=== PATIENT | female | born 1940 | race Caucasian/White ===

== ENCOUNTER 2016-05-11 17:48 | Inpatient (IN) | payer OTHER ==
[~2016-05-11] VITALS: Ht 160 cm; Wt 112.4 kg
[~2016-05-11 17:48] MED LIST: ASPIR-LOW81 MG PO; ASPIRIN EC325 MG PO; CALCIUM/VITAMIN D PO; CELEBREX200 MG PO; DOK PLUS TABLE1 EACH PO; HYDROCODON-ACE1 EAC7 PO; HYDROCODON-ACE1 EAC9 PO; LASIX40 MG PO; LIPITOR40 MG PO; LO-DOSE ASPIRIN81 M1 PO; LOPRESSOR50 MG PO; SENNA PLUS TAB1 EACH PO; ZESTORETIC 20-1 EAC1 NG; ZESTRIL20 MG PO
[2016-05-11 18:14] LABS: CREATININE 0.8 mg/dL (0.6-1.3); POTASSIUM 3.8 mEq/L (3.7-5.4)
[2016-05-11 18:23] LABS: EOSINOPHIL (%) 0 % (0-5); HEMATOCRIT 39.4 % (36.0-46.0); IMMATURE GRANULOCYTE (%) 0.5 % (0.0-0.7); IMMATURE GRANULOCYTE COUNT 0.6 K/uL; LYMPHOCYTE COUNT 0.7 K/uL (1.0-2.8); MCHC 33.5 G/DL (30.0-36.0); MCV 83.7 FL (83-99); MEAN PLAT.VOLUME 10.3 uM^3 (9.5-12.4); MONOCYTE (%) 7.2 % (3-12); MONOCYTE COUNT 0.9 K/uL (0-0.8); NEUTROPHIL (%) 86.2 % (45-76); NEUTROPHIL COUNT 10.7 K/uL (1.8-6.4); PLATELET COUNT 250 K/uL (156-360); RBC DIS.WIDTH-CV 13.9 % (11.8-14.6); RBC DIS.WIDTH-SD 41.8 % (39-53); RED BLOOD COUNT 4.71 M/uL (3.80-5.20); WHITE BLOOD COUNT 12.4 K/uL (4.1-10.2)
[2016-05-11 18:42] LABS: CHLORIDE 101 mEq/L (99-109); SODIUM 135 mEq/L (136-147)
[2016-05-11 18:44] LABS: GLUCOSE 206 mg/dL (70-99); TROP-I INTERPRETATION NEGATIVE; TROPONIN-I 0.12 ng/mL (0.0-0.30)
[2016-05-11 18:46] LABS: ANION GAP 15 MEQ/L (2-14)
[2016-05-11 18:48] LABS: ALKALINE PHOSPHATASE 88 IU/L (3-129); GFR ESTIMATE (CALCULATED) 52 mL/min/
[2016-05-11 18:49] LABS: UREA NITROGEN (BUN) 20 mg/dL (9-23)
[2016-05-11 18:51] LABS: LIPASE 85 U/L (1.0-51.0)
[2016-05-11 18:56] LABS: INFLUENZA A VIRAL ANTIGEN NEGATIVE; INFLUENZA B VIRAL ANTIGEN POSITIVE
[2016-05-11 18:57] LABS: CREATINE KINASE 390 IU/L (1-294); TOTAL CK 390 IU/L (1-294)
[2016-05-11 19:03] LABS: CK-MB 2.8 ng/mL (0.0-4.9)
[2016-05-11 19:32] LABS: ADD MIUA? YES; BILIRUBIN NEGATIVE; BLOOD SMALL; COLOR YELLOW ((YELLOW)); GLUCOSE (STRIP) 150; KETONES 20; LEUKOCYTES NEGATIVE; NITRITE NEGATIVE; PROTEIN (STRIP) >=500; SPECIFIC GRAVITY 1.024 (1.000-1.030); UROBILINOGEN 0.2 MG/DL (0.2-1.0)
[2016-05-11 19:37] LABS: BASE EXCESS -1.4 mEq/L (-3 to +3); BICARBONATE 22.8 mEq/L (22-26); COMMENTS - BLOOD GASES C+A+; DEVICE VENTILATOR; FI02 40 %; MECHANICAL RATE 16 resp/min; METHEMOGLOBIN 1.1 % (0-1.5); MODE A/C; PCO2 36 mm Hg (35-45); PEEP 5 CM/H20; PO2 84 mm Hg (80-100); SITE RR; TIDAL VOLUME 500 ML; TOTAL RESP RATE 16 resp/min; pH 7.41 (7.35-7.45)
[2016-05-11 19:38] LABS: BACTERIA NONE SEEN /HPF; EPITHELIAL CELLS RARE /HPF; MUCUS TRACE /LPF; UCUL ADDED? NO; WHITE BLOOD CELLS 0-5 /HPF (0-5)
[2016-05-12] VITALS (31 sets, daily range): BP systolic 80–159; BP diastolic 26–60
[2016-05-12 02:04] LABS: BASE EXCESS -1.2 mEq/L (-3 to +3); CARBOXY HGB 1.6 % (0-5); COMMENTS - BLOOD GASES C+; DEVICE VENT; FI02 40 %; METHEMOGLOBIN 1.4 % (0-1.5); PCO2 31 mm Hg (35-45); PO2 79 mm Hg (80-100); SITE RR; pH 7.46 (7.35-7.45)
[2016-05-12 02:05] LABS: MECHANICAL RATE 16 resp/min; MODE AC; PEEP 5 CM/H20; TIDAL VOLUME 500 ML; TOTAL RESP RATE 16 resp/min
[2016-05-12 02:27] LABS: POINT-OF-CARE METER ID UU13113731
[2016-05-12 02:57] LABS: METH RESISTANT S AUREUS PCR NEGATIVE (NEGATIVE)
[2016-05-12 03:02] LABS: PROBE CHECK PASS; SPECIMEN PROCESSING CONTROL PASS
[2016-05-12 04:25] LABS: AMPHETAMINES QUANT VALUE 0 NG/ML; BARBITUATES QUANT VALUE 0 NG/ML; BENZODIAZEPINES QUANT VALUE 0 NG/ML; BENZODIAZEPINES, URINE SCREEN Negative (200 ng/mL); MARIJUANA QUANT VALUE 0 NG/ML; OPIATES QUANTITATIVE VALUE 0 NG/ML; PHENCYCLIDINE QUANT VALUE 0 NG/ML
[2016-05-12 06:35] LABS: ALKALINE PHOSPHATASE 56 IU/L (3-129); ANION GAP 11 MEQ/L (2-14); CHLORIDE 107 MEQ/L (99-109); DIRECT BILIRUBIN 0.2 mg/dL (0.0-0.3); GFR ESTIMATE (CALCULATED) 52 mL/min/; GLUCOSE 142 mg/dL (70-99); MAGNESIUM 1.4 mg/dl (1.3-2.7); SAMPLE HEMOLYSIS CHECK 0; SAMPLE ICTERIC CHECK 0; SAMPLE LIPEMIA CHECK 0; SODIUM 137 MEQ/L (136-147); TOTAL BILIRUBIN 0.7 MG/DL (0.0-1.0); UREA NITROGEN (BUN) 22 mg/dL (9-23)
[2016-05-12 06:44] LABS: EOSINOPHIL (%) 0 % (0-5); HEMATOCRIT 31.7 % (36.0-46.0); IMMATURE GRANULOCYTE (%) 0.2 % (0.0-0.7); LYMPHOCYTE COUNT 0.6 K/uL (1.0-2.8); MCH 27.5 PG (29.0-34.0); MCHC 32.5 G/DL (30.0-36.0); MCV 84.8 FL (83-99); MEAN PLAT.VOLUME 10.2 uM^3 (9.5-12.4); MONOCYTE COUNT 1.2 K/uL (0-0.8); NEUTROPHIL (%) 76.9 % (45-76); NEUTROPHIL COUNT 6.3 K/uL (1.8-6.4); PLATELET COUNT 185 K/uL (156-360); POTASSIUM 3.1 MEQ/L (3.7-5.4); RBC DIS.WIDTH-CV 14.2 % (11.8-14.6)
[2016-05-12 06:45] LABS: RED BLOOD COUNT 3.74 M/uL (3.80-5.20); WHITE BLOOD COUNT 8.2 K/uL (4.1-10.2)
[2016-05-12 10:01] LABS: POINT-OF-CARE METER ID UU14174217
[2016-05-12 10:02] LABS: POINT-OF-CARE METER ID UU13113748
[2016-05-12] MEDS ORDERED: ATORVASTATIN CA40 MG PO (11:45)
[2016-05-12] MEDS ORDERED: ASPIR-LOW81 MG PO (11:45)
[2016-05-12] MEDS ORDERED: CALCIUM 600 MG1 EACH PO (11:46)
[2016-05-12] MEDS ORDERED: CELECOXIB200 MG PO (11:47)
[2016-05-12] MEDS ORDERED: FUROSEMIDE40 MG PO (11:47)
[2016-05-12] MEDS ORDERED: METOPROLOL TART50 MG PO (11:48)
[2016-05-12] MEDS ORDERED: LISINOPRIL30 MG PO (11:48)
[2016-05-12] MEDS ORDERED: POTASSIUM CHLO20 ME2 PO (11:49)
[2016-05-12 16:39] LABS: BICARBONATE 20.6 mEq/L (22-26); CARBOXY HGB 1.5 % (0-5); COMMENTS - BLOOD GASES AC+; DEVICE 840 VENTILATOR; FI02 40 %; METHEMOGLOBIN 1.4 % (0-1.5); MODE TUBE COMPENSATION; PCO2 31 mm Hg (35-45); PO2 79 mm Hg (80-100); SITE LR; pH 7.43 (7.35-7.45)
[2016-05-12 16:40] LABS: CONTINUOUS POS AIRWAY PRESSURE 5 cm H2O; TOTAL RESP RATE 29 resp/min
[2016-05-12 17:13] LABS: ANION GAP 9 MEQ/L (2-14); CHLORIDE 109 MEQ/L (99-109); GFR ESTIMATE (CALCULATED) 36 mL/min/; GLUCOSE 130 mg/dL (70-99); POTASSIUM 3.3 MEQ/L (3.7-5.4); SAMPLE HEMOLYSIS CHECK 0; SAMPLE ICTERIC CHECK 0; SAMPLE LIPEMIA CHECK 0; SODIUM 138 MEQ/L (136-147); UREA NITROGEN (BUN) 22 mg/dL (9-23)
[2016-05-12 17:16] LABS: MAGNESIUM 2.1 mg/dl (1.3-2.7)
[2016-05-12 20:08] LABS: BASE EXCESS -3.6 mEq/L (-3 to +3); BICARBONATE 20.1 mEq/L (22-26); CARBOXY HGB 1.6 % (0-5); METHEMOGLOBIN 1.7 % (0-1.5); PCO2 31 mm Hg (35-45); PO2 94 mm Hg (80-100); SITE RR; pH 7.42 (7.35-7.45)
[2016-05-12 20:09] LABS: COMMENTS - BLOOD GASES C+; DEVICE NC; O2 FLOW 3.5 L/MIN; TOTAL RESP RATE 16 resp/min
[2016-05-13] VITALS (25 sets, daily range): BP systolic 69–215; BP diastolic 50–79
[2016-05-13 00:20] LABS: POINT-OF-CARE METER ID UU14174217
[2016-05-13 05:44] LABS: POINT-OF-CARE METER ID UU13113731
[2016-05-13 06:44] LABS: BASOPHIL COUNT 0.1 K/uL (0-0.1); EOSINOPHIL (%) 2.9 % (0-5); EOSINOPHIL COUNT 0.2 K/uL (0-0.3); HEMATOCRIT 30.1 % (36.0-46.0); IMMATURE GRANULOCYTE (%) 0.4 % (0.0-0.7); INSTRUMENT ABS NEUTROPHIL CT 5.4 K/uL; LYMPHOCYTE COUNT 1.1 K/uL (1.0-2.8); MCH 27.7 PG (29.0-34.0); MCHC 31.9 G/DL (30.0-36.0); MEAN PLAT.VOLUME 10.7 uM^3 (9.5-12.4); MONOCYTE (%) 12.2 % (3-12); MONOCYTE COUNT 0.9 K/uL (0-0.8); NEUTROPHIL (%) 69.7 % (45-76); NEUTROPHIL COUNT 5.4 K/uL (1.8-6.4); PLATELET COUNT 186 K/uL (156-360); RBC DIS.WIDTH-CV 14.4 % (11.8-14.6); RBC DIS.WIDTH-SD 46.4 % (39-53); RED BLOOD COUNT 3.46 M/uL (3.80-5.20); WHITE BLOOD COUNT 7.7 K/uL (4.1-10.2)
[2016-05-13 07:40] LABS: ANION GAP 10 MEQ/L (2-14); CHLORIDE 112 MEQ/L (99-109); GFR ESTIMATE (CALCULATED) 31 mL/min/; GLUCOSE 121 mg/dL (70-99); MAGNESIUM 2.1 mg/dl (1.3-2.7); POTASSIUM 3.5 MEQ/L (3.7-5.4); SAMPLE HEMOLYSIS CHECK 0; SAMPLE ICTERIC CHECK 0; SAMPLE LIPEMIA CHECK 0; SODIUM 141 MEQ/L (136-147); UREA NITROGEN (BUN) 22 mg/dL (9-23)
[2016-05-13 12:11] LABS: POINT-OF-CARE METER ID UU14162636
[2016-05-13 18:34] LABS: POINT-OF-CARE METER ID UU13113803
[2016-05-14] VITALS (20 sets, daily range): BP systolic 129–187; BP diastolic 41–118
[2016-05-14 00:55] LABS: POINT-OF-CARE METER ID UU13113731; POINT-OF-CARE USER ID PHATLC
[2016-05-14 03:17] LABS: C DIFF TOXIN POSITIVE (NEGATIVE)
[2016-05-14 03:19] LABS: PROBE CHECK PASS
[2016-05-14 05:34] LABS: POINT-OF-CARE METER ID UU14174217; POINT-OF-CARE USER ID PHATLC
[2016-05-14 08:03] LABS: EOSINOPHIL (%) 0 % (0-5); HEMATOCRIT 34.6 % (36.0-46.0); IMMATURE GRANULOCYTE (%) 2.2 % (0.0-0.7); IMMATURE GRANULOCYTE COUNT 0.2 K/uL; LYMPHOCYTE COUNT 0.8 K/uL (1.0-2.8); MCH 27.4 PG (29.0-34.0); MCHC 31.8 G/DL (30.0-36.0); MCV 86.3 FL (83-99); MEAN PLAT.VOLUME 10.1 uM^3 (9.5-12.4); MONOCYTE (%) 4.3 % (3-12); MONOCYTE COUNT 0.4 K/uL (0-0.8); NEUTROPHIL (%) 85.2 % (45-76); PLATELET COUNT 239 K/uL (156-360); RBC DIS.WIDTH-CV 14.3 % (11.8-14.6); RBC DIS.WIDTH-SD 45.4 % (39-53); RED BLOOD COUNT 4.01 M/uL (3.80-5.20); WHITE BLOOD COUNT 9.4 K/uL (4.1-10.2)
[2016-05-14 08:05] LABS: ANION GAP 15 MEQ/L (2-14); CHLORIDE 105 MEQ/L (99-109); GFR ESTIMATE (CALCULATED) 29 mL/min/; POTASSIUM 3.5 MEQ/L (3.7-5.4); SAMPLE HEMOLYSIS CHECK 0; SAMPLE ICTERIC CHECK 0; SAMPLE LIPEMIA CHECK 0; SODIUM 140 MEQ/L (136-147); UREA NITROGEN (BUN) 27 mg/dL (9-23)
[2016-05-14 08:08] LABS: GLUCOSE 191 mg/dL (70-99); MAGNESIUM 1.7 mg/dl (1.3-2.7)
[2016-05-14 12:36] LABS: POINT-OF-CARE METER ID UU14162636
[2016-05-14 17:52] LABS: POINT-OF-CARE METER ID UU14162636
[2016-05-14 23:59] LABS: POINT-OF-CARE METER ID UU13113803; POINT-OF-CARE USER ID PHATLC
[2016-05-15] VITALS (8 sets, daily range): BP systolic 138–172; BP diastolic 52–80
[2016-05-15 06:02] LABS: POINT-OF-CARE METER ID UU14162636; POINT-OF-CARE USER ID PHATLC
[2016-05-15 06:06] LABS: EOSINOPHIL (%) 0 % (0-5); HEMATOCRIT 33.5 % (36.0-46.0); IMMATURE GRANULOCYTE (%) 2.6 % (0.0-0.7); IMMATURE GRANULOCYTE COUNT 0.3 K/uL; INSTRUMENT ABS NEUTROPHIL CT 8.8 K/uL; LYMPHOCYTE COUNT 0.8 K/uL (1.0-2.8); MCH 27.3 PG (29.0-34.0); MCHC 31.9 G/DL (30.0-36.0); MCV 85.5 FL (83-99); MONOCYTE (%) 6.4 % (3-12); MONOCYTE COUNT 0.7 K/uL (0-0.8); NEUTROPHIL (%) 83.5 % (45-76); NEUTROPHIL COUNT 8.8 K/uL (1.8-6.4); PLATELET COUNT 265 K/uL (156-360); RBC DIS.WIDTH-CV 14.6 % (11.8-14.6); RBC DIS.WIDTH-SD 45.1 % (39-53); RED BLOOD COUNT 3.92 M/uL (3.80-5.20); WHITE BLOOD COUNT 10.5 K/uL (4.1-10.2)
[2016-05-15 06:43] LABS: ANION GAP 11 MEQ/L (2-14); CHLORIDE 104 MEQ/L (99-109); GFR ESTIMATE (CALCULATED) 31 mL/min/; GLUCOSE 199 mg/dL (70-99); POTASSIUM 3.5 MEQ/L (3.7-5.4); SAMPLE HEMOLYSIS CHECK 0; SAMPLE ICTERIC CHECK 0; SAMPLE LIPEMIA CHECK 0; SODIUM 138 MEQ/L (136-147); UREA NITROGEN (BUN) 36 mg/dL (9-23)
[2016-05-15 06:45] LABS: MAGNESIUM 2.2 mg/dl (1.3-2.7)
[2016-05-15 09:02] LABS: POINT-OF-CARE METER ID UU13113731
[2016-05-15 12:06] LABS: POINT-OF-CARE METER ID UU14162636
[2016-05-16 06:47] LABS: EOSINOPHIL (%) 0.1 % (0-5); HEMATOCRIT 32.6 % (36.0-46.0); IMMATURE GRANULOCYTE (%) 4.4 % (0.0-0.7); IMMATURE GRANULOCYTE COUNT 0.5 K/uL; INSTRUMENT ABS NEUTROPHIL CT 6.8 K/uL; LYMPHOCYTE COUNT 1.9 K/uL (1.0-2.8); MCH 27.2 PG (29.0-34.0); MCHC 31.6 G/DL (30.0-36.0); MONOCYTE (%) 13.3 % (3-12); MONOCYTE COUNT 1.4 K/uL (0-0.8); NEUTROPHIL (%) 64.1 % (45-76); NEUTROPHIL COUNT 6.8 K/uL (1.8-6.4); PLATELET COUNT 285 K/uL (156-360); RBC DIS.WIDTH-CV 14.5 % (11.8-14.6); RBC DIS.WIDTH-SD 45.8 % (39-53); RED BLOOD COUNT 3.79 M/uL (3.80-5.20); WHITE BLOOD COUNT 10.5 K/uL (4.1-10.2)
[2016-05-16 07:23] LABS: ANION GAP 11 MEQ/L (2-14); CHLORIDE 105 MEQ/L (99-109); GFR ESTIMATE (CALCULATED) 31 mL/min/; GLUCOSE 129 mg/dL (70-99); POTASSIUM 3.3 MEQ/L (3.7-5.4); SAMPLE HEMOLYSIS CHECK 0; SAMPLE ICTERIC CHECK 0; SAMPLE LIPEMIA CHECK 0; SODIUM 141 MEQ/L (136-147); UREA NITROGEN (BUN) 40 mg/dL (9-23)
[2016-05-16 07:52] VITALS: BP 140/83
[2016-05-16 11:09] LABS: POINT-OF-CARE METER ID UU13113725
[2016-05-16] MEDS ORDERED: DUONEB 2.5-0.5 M3 ML AEROSOL (11:35)
[2016-05-16] MEDS ORDERED: METRONIDAZOLE500 MG PO (11:35)
[2016-05-16] MEDS ORDERED: APRESOLINE20 MG/ML IV (11:39)
[2016-05-16] MEDS ORDERED: GUAIFENESIN WI120 M1 PO (11:41)
[2016-05-16] MEDS ORDERED: BENZONATATE100 MG PO (11:41)
[2016-05-16] MEDS ORDERED: NOVOLOG PE100 UNITS/ SC (11:42)
[2016-05-16] MEDS ORDERED: GLUCAGEN1 MG IM/SC (11:42)
[2016-05-16] MEDS ORDERED: CLONIDINE HCL0.1 MG PO (12:04)
[2016-05-16 15:50] VITALS: BP 138/81
== END 2016-05-16 20:40 | DRG 371 ==
LOC: EME 17:48 → EDOF 23:32 → 4WEST 23:32 → 5EAST 05-15 14:23
PROVIDERS: Emergency Medicine; Internal Medicine; Internal Medicine Nephrology; Obstetrics & Gynecology; Specialist
DX: A04.7 Enterocolitis due to Clostridium difficile (principal); N17.9 Acute kidney failure, unspecified; E87.2 Acidosis; J10.00 Influenza due to other identified influenza virus with unspecified type of pneumonia; E11.65 Type 2 diabetes mellitus with hyperglycemia; F91.9 Conduct disorder, unspecified; R41.82 Altered mental status, unspecified; R94.31 Abnormal electrocardiogram [ECG] [EKG]; J10.1 Influenza due to other identified influenza virus with other respiratory manifestations; D72.829 Elevated white blood cell count, unspecified; I10 Essential (primary) hypertension; Z88.9 Allergy status to unspecified drugs, medicaments and biological substances; R60.0 Localized edema; R09.02 Hypoxemia; E87.6 Hypokalemia; E83.42 Hypomagnesemia; E87.70 Fluid overload, unspecified; R05 Cough; J40 Bronchitis, not specified as acute or chronic; R41.0 Disorientation, unspecified
CPT/HCPCS: 36600; 70450; 71010; 80047; 80048; 80048 91; 80053; 80076; 80306 90; 81003; 82550; 82553; 82803; 82948; 83605; 83690; 83735; 84100; 84484; 85025; 87040; 87070; 87205; 87493; 87502; 87641; 93005; 94002; 94003; 94640 76; 94799; 97530 GP; 99202; 99281; 99285; J0360; J0456; J0696; J1630; J1644; J1815; J1940; J2060; J2543; J2704; J2920; J2930; J3010; J3370; J3475; J7030; J7040; J7050; J7120; S0028

== ENCOUNTER 2016-11-24 09:18 | Inpatient (IN) | payer OTHER ==
[~2016-11-24] VITALS: Ht 160 cm; Wt 111.0 kg
[~2016-11-24 09:18] MED LIST changes: +APRESOLINE20 MG/ML IV; +ATORVASTATIN CA40 MG PO; +BENZONATATE100 MG PO; +CALCIUM 600 MG1 EACH PO; +CELECOXIB200 MG PO; +CLONIDINE HCL0.1 MG PO; +DUONEB 2.5-0.5 M3 ML AEROSOL; +FUROSEMIDE40 MG PO; +GLUCAGEN1 MG IM/SC; +GUAIFENESIN WI120 M1 PO; +LISINOPRIL30 MG PO; +METOPROLOL TART50 MG PO; +METRONIDAZOLE500 MG PO; +NOVOLOG PE100 UNITS/ SC; +POTASSIUM CHLO20 ME2 PO
[2016-11-24 10:03] LABS: EOSINOPHIL (%) 0.3 % (0-5); HEMATOCRIT 42.9 % (36.0-46.0); IMMATURE GRANULOCYTE (%) 0.7 % (0.0-0.7); IMMATURE GRANULOCYTE COUNT 0.1 K/uL; INSTRUMENT ABS NEUTROPHIL CT 9.5 K/uL; LYMPHOCYTE COUNT 0.7 K/uL (1.0-2.8); MCH 28.3 PG (29.0-34.0); MCHC 32.6 G/DL (30.0-36.0); MCV 86.8 FL (83-99); MEAN PLAT.VOLUME 10.2 uM^3 (9.5-12.4); MONOCYTE (%) 3.9 % (3-12); MONOCYTE COUNT 0.4 K/uL (0-0.8); NEUTROPHIL (%) 87.9 % (45-76); NEUTROPHIL COUNT 9.5 K/uL (1.8-6.4); PLATELET COUNT 225 K/uL (156-360); RBC DIS.WIDTH-CV 13.5 % (11.8-14.6); RBC DIS.WIDTH-SD 42.8 % (39-53); RED BLOOD COUNT 4.94 M/uL (3.80-5.20); WHITE BLOOD COUNT 10.8 K/uL (4.1-10.2)
[2016-11-24 10:11] LABS: AMYLASE 53 IU/L (1-118); CHLORIDE 101 mEq/L (99-109); SODIUM 138 mEq/L (136-147)
[2016-11-24 10:13] LABS: GLUCOSE 200 mg/dL (70-99)
[2016-11-24 10:14] LABS: ANION GAP 13 MEQ/L (2-14)
[2016-11-24 10:16] LABS: INTER. NORMALIZED RATIO 1.1; PROTHROMBIN TIME 12.4 SEC (10.2-12.9); SERUM ETHYL ALCOHOL < 10 mg/dL
[2016-11-24 10:17] LABS: GFR ESTIMATE (CALCULATED) > 59 mL/min/
[2016-11-24 10:18] LABS: UREA NITROGEN (BUN) 17 mg/dL (9-23)
[2016-11-24 10:19] LABS: PTT 25.4 SEC (25-37)
[2016-11-24 10:20] LABS: LIPASE 13 U/L (1.0-51.0)
[2016-11-24 10:22] LABS: TROP-I INTERPRETATION NEGATIVE; TROPONIN-I 0.01 ng/mL (0.0-0.30)
[2016-11-24 11:40] LABS: ADD MIUA? YES; BILIRUBIN NEGATIVE; BLOOD SMALL; COLOR YELLOW ((YELLOW)); GLUCOSE (STRIP) 50; KETONES 5; LEUKOCYTES MODERATE; NITRITE NEGATIVE; PROTEIN (STRIP) >=500; SPECIFIC GRAVITY 1.034 (1.000-1.030); UROBILINOGEN 0.2 MG/DL (0.2-1.0)
[2016-11-24 11:43] LABS: AMPHETAMINE NEGATIVE (500 ng/mL); BARBITURATES NEGATIVE (200 ng/mL); BENZODIAZEPINES NEGATIVE (150 ng/mL); COCAINE NEGATIVE (150 ng/mL); INTERNAL CONTROLS VALID? YES; METHADONE NEGATIVE (200 ng/mL); METHAMPHETAMINE NEGATIVE (500 ng/mL); OPIATES (MORPHINE) NEGATIVE (100 ng/mL); OXYCODONE NEGATIVE (100 ng/mL); PHENCYCLIDINE NEGATIVE (25 ng/mL); PROPOXYPHENE NEGATIVE (300 ng/mL); THC CANNABINOIDS NEGATIVE (50 ng/mL); TRICYCLIC ANTIDEPRESSANTS NEGATIVE (300 ng/mL)
[2016-11-24 11:48] LABS: BACTERIA 1+ /HPF; BUDDING YEAST 3+; EPITHELIAL CELLS RARE /HPF; MUCUS TRACE /LPF; RED BLOOD CELLS 15-20 /HPF (0-5); UCUL ADDED? YES; WHITE BLOOD CELLS TNTC /HPF (0-5); WHITE BLOOD CELLS CLUMP FEW /HPF (0-5)
[2016-11-24] MEDS ORDERED: LOPRESSOR100 M1 PO (12:50)
[2016-11-24] MEDS ORDERED: LASIX40 MG PO (12:51)
[2016-11-24 14:04] LABS: HDL CHOLESTEROL 46 MG/DL (Desirable>=50); LDL CHOLESTEROL 101 mg/dL (Desirable<100); NON-HDL CHOLESTEROL 128 mg/dL (Desirable<160); TOTAL CHOLESTEROL 174 mg/dL (Desirable<200); TRIGLYCERIDES 137 MG/DL (Normal: <150)
[2016-11-24 14:22] LABS: Estimated Average Glucose 146 mg/dL (70-123); HEMOGLOBIN A1c (GLYCOHEMOGLOB) 6.7 % HGB (Below 5.7)
[2016-11-24 21:41] VITALS: BP 177/75
[2016-11-24 23:39] VITALS: BP 181/74
[2016-11-25 03:54] VITALS: BP 129/60
[2016-11-25 06:50] LABS: ALKALINE PHOSPHATASE 58 IU/L (3-129); ANION GAP 9 MEQ/L (2-14); CHLORIDE 106 MEQ/L (99-109); GFR ESTIMATE (CALCULATED) > 59 mL/min/; GLUCOSE 113 mg/dL (70-99); POTASSIUM 3.4 MEQ/L (3.7-5.4); SAMPLE HEMOLYSIS CHECK 0; SAMPLE ICTERIC CHECK 0; SAMPLE LIPEMIA CHECK 0; SODIUM 141 MEQ/L (136-147); TOTAL BILIRUBIN 0.7 MG/DL (0.0-1.0); UREA NITROGEN (BUN) 20 mg/dL (9-23)
[2016-11-25 06:55] LABS: HEMATOCRIT 33.5 % (36.0-46.0); MCH 28.5 PG (29.0-34.0); MCHC 32.5 G/DL (30.0-36.0); MCV 87.7 FL (83-99); MEAN PLAT.VOLUME 10.4 uM^3 (9.5-12.4); PLATELET COUNT 201 K/uL (156-360); RBC DIS.WIDTH-CV 13.6 % (11.8-14.6); RBC DIS.WIDTH-SD 43.6 % (39-53); WHITE BLOOD COUNT 8.9 K/uL (4.1-10.2)
[2016-11-25 06:58] LABS: RED BLOOD COUNT 3.82 M/uL (3.80-5.20)
[2016-11-25 07:47] VITALS: BP 184/77
[2016-11-25 11:31] VITALS: BP 176/75
[2016-11-25 15:52] VITALS: BP 171/73
[2016-11-25 19:54] VITALS: BP 176/68
[2016-11-25 23:42] VITALS: BP 184/79
[2016-11-26 04:07] VITALS: BP 164/76
[2016-11-26 09:01] VITALS: BP 180/98
[2016-11-26] MEDS ORDERED: CEFDINIR300 MG PO (09:51)
[2016-11-26 12:49] LABS: POINT-OF-CARE METER ID UU13113717
== END 2016-11-26 14:01 | disposition home or self-care (01) | DRG 689 ==
LOC: EME 09:18 → EDOF 12:09 → 5SOUTH 12:09 → ENRESERV 12:13 → 5SOUTH 21:17
PROVIDERS: Emergency Medicine; Hospitalist
DX: N39.0 Urinary tract infection, site not specified (principal); G93.41 Metabolic encephalopathy; I65.23 Occlusion and stenosis of bilateral carotid arteries; I10 Essential (primary) hypertension; E78.5 Hyperlipidemia, unspecified; E11.9 Type 2 diabetes mellitus without complications; J06.9 Acute upper respiratory infection, unspecified; E66.01 Morbid (severe) obesity due to excess calories; Z68.41 Body mass index [BMI] 40.0-44.9, adult; G89.29 Other chronic pain; M54.9 Dorsalgia, unspecified; M19.90 Unspecified osteoarthritis, unspecified site; F32.9 Major depressive disorder, single episode, unspecified; F41.9 Anxiety disorder, unspecified; Z91.81 History of falling; Z79.82 Long term (current) use of aspirin; Z96.653 Presence of artificial knee joint, bilateral; Z90.710 Acquired absence of both cervix and uterus; Z87.442 Personal history of urinary calculi; Z82.49 Family history of ischemic heart disease and other diseases of the circulatory system
CPT/HCPCS: 70450; 70496; 70498; 70551; 80048; 80053; 80061; 81003; 82150; 82948; 83036; 83690; 84484; 85025; 85027; 85610; 85730; 86850; 86900; 86901; 87040; 87077; 87086; 87186; 93005; 93880; 99281; 99285; G0480; J0696; J2405; J7030; J7050